=== PATIENT | female | born 1970 | race Caucasian/White ===

== ENCOUNTER → 2024-09-22 09:48 | Outpatient (CLI) | payer OTHER, SELFPAY ==
[2024-09-22 10:53] LABS: Appearance Urine UA CLEAR; Bilirubin Urine UA NEGATIVE (NEGATIVE); Color Urine UA YELLOW; Glucose Urine UA NEGATIVE (Negative); Ketones Urine UA NEGATIVE (NEGATIVE); Leukocyte Esterase Urine UA NEGATIVE (NEGATIVE); Nitrite Urine UA NEGATIVE (Negative); Occult Blood Urine UA NEGATIVE (Negative); Protein Urine UA NEGATIVE (Negative); Specific Gravity Urine UA 1.025 (1.000-1.035); Urobilinogen Urine UA 0.2 E.U./dL (0.2)
[2024-09-22 10:55] LABS: pH Urine UA 5.5 (4.5-8.0)
[2024-09-22 10:57] LABS: Culture Indicated Urine Cult Not Indicated
== END ==
PROVIDERS: Visit Provider Obstetrics & Gynecology Gynecology
DX: N32.81 Overactive bladder (principal); N81.6 Rectocele; Z98.890 Other specified postprocedural states
CPT/HCPCS: 81001